=== PATIENT | female | born 1940 | race Caucasian/White ===

== ENCOUNTER 2023-11-23 09:47 | Emergency (ER) | payer MEDICARE ==
[~2023-11-23] VITALS: Ht 162.6 cm; Wt 78.8 kg
[2023-11-23 10:13] VITALS: TEMP 98.7
[2023-11-23 12:06] LABS: BASOPHILS # (AUTO) 0.1 X10'3 (0-0.2); BASOPHILS % (AUTO) 0.6 % (0-1); EOSINOPHILS # (AUTO) 0.2 X10'3 (0-0.9); EOSINOPHILS % (AUTO) 2.3 % (0-6); HEMATOCRIT 35.2 % (42.0-52.0); HEMOGLOBIN 10.8 g/dl (14.0-17.9); LYMPHOCYTES # (AUTO) 2.2 X10'3 (1.1-4.8); LYMPHOCYTES % (AUTO) 24.3 % (21-51); MEAN CORPUSCULAR HEMOGLOBIN 26.3 PG (27.0-31.0); MEAN CORPUSCULAR HGB CONC 30.8 g/dL (33.0-36.5); MEAN CORPUSCULAR VOLUME 85.2 FL (78-98); MEAN PLATELET VOLUME 10.7 FL (7.4-10.4); MONOCYTES % (AUTO) 11.1 % (2-12); NEUTROPHILS # (AUTO) 5.6 X10'3 (1.8-7.7); NEUTROPHILS % (AUTO) 61.7 % (42-75); PLATELET COUNT 341 X10'3 (140-440); RED BLOOD COUNT 4.12 X10'6 (4.70-6.10); RED CELL DISTRIBUTION WIDTH 17.3 % (11.5-14.5); WHITE BLOOD COUNT 9.1 X10'3 (4.5-11.0)
[2023-11-23 12:22] LABS: ALBUMIN 3.3 G/DL (3.4-5.0); ANION GAP 7 (8-16); BLOOD UREA NITROGEN 20 MG/DL (7-18); CALCIUM 8.6 MG/DL (8.5-10.1); CHLORIDE 110 MMOL/L (99-107); GLUCOSE 120 MG/DL (70-104); POTASSIUM 4.1 MMOL/L (3.5-5.1); PRO BRAIN NATRIURETIC PEPTIDE 377 PG/ML (0-450); SODIUM 145 MMOL/L (135-145); TOTAL CARBON DIOXIDE 27.9 MMOL/L (24-32); eCRCL 45 ML/MIN; eGFR 71 ML/MIN
[2023-11-23 12:32] LABS: PLATELET ESTIMATE NORMAL
[2023-11-23 12:33] LABS: ACANTHOCYTES 1+; ANISOCYTOSIS 1+; ELLIPTOCYTES 1+; SCHISTOCYTES FEW
[2023-11-23] MEDS: normal saline 500ml IV soln 500 ML IV SCH (14:00)
[2023-11-23] MEDS: normal saline 1000ml 1,000 ML IV ONE (14:00)
[2023-11-23 14:12] LABS: LIPASE 20 U/L (16-77)
[2023-11-23 14:17] LABS: APTT 31 SECONDS (22-32); INR 1.3 INR; PROTHROMBIN TIME 13.8 SECONDS (9.0-12.0)
[2023-11-23 14:23] VITALS: BP 190/75; PULSE 70; RESP 14; O2SAT 96
[2023-11-23] MEDS: ondansetron/PF 4mg/2ml inj IV ONE (16:38)
[2023-11-23] MEDS: acetaminophen 325mg tablet PO ONE (18:46)
== END 2023-11-23 18:59 | disposition home or self-care (01) ==
LOC: ER 09:48 → EDSEX 09:48 → ER 18:59
DX: R51.9 Headache, unspecified (principal); R42 Dizziness and giddiness; Z20.822 Contact with and (suspected) exposure to COVID-19
CPT/HCPCS: 36415; 70450; 71045; 74176; 80048; 83690; 83880; 84484; 85008; 85025; 85610; 85730; 87502; 87503; 87811; 93005; 96361; 96374; 99285; J2405; J7030; J7040; 96360